=== PATIENT | male | born 1955 | race Caucasian/White ===

== ENCOUNTER → 2018-03-05 | Outpatient (CLI) | payer BC | LOC: M RAD 12:53 | DX: I12.9 Hypertensive chronic kidney disease with stage 1 through stage 4 chronic kidney disease, or unspecified chronic kidney disease (principal); N18.2 Chronic kidney disease, stage 2 (mild) | CPT/HCPCS: 76775 ==

== ENCOUNTER → 2019-03-18 | Outpatient (REF) | payer OTHER ==
[~2019-03-18] MED LIST: DOXA1TAB41 PO; LEVO100T5 PO; LISI10TA4 PO
[2019-03-18 14:00] LABS: BACTERIA, URINE AUTO NEGATIVE (NEGATIVE); RBC, URINE AUTO 0 /HPF (0-3); SQUAMOUS EPITHELIAL CELL UR AU 0 /HPF (0-6); WBC, URINE AUTO 0 /HPF (0-3)
== END ==
LOC: M LAB REF 12:54
PROVIDERS: ATTEND Internal Medicine Nephrology
DX: I10 Essential (primary) hypertension (principal); R31.21 Asymptomatic microscopic hematuria

== ENCOUNTER → 2020-11-12 | Outpatient (CLI) | payer MEDICARE ==
[~2020-11-12] MED LIST changes: +D31000TA2 PO; +DOXA1TAB67 PO; +FLAX1CAP5 PO; +LISI10TA22 PO; -LISI10TA4 PO; +NIAC500T29 PO; +SILD100T PO
--- NOTE | 2020-11-12 09:56 | REP ---
INDICATION: CLL. COMPARISON: Renal ultrasound 03/05/2018. TECHNIQUE: Real-time sonographic evaluation of ABDOMEN performed. FINDINGS: The patient has had a prior cholecystectomy.. There is no intrahepatic or extrahepatic biliary dilatation, common bile duct measures 4 mm in maximum diameter. The liver demonstrates homogeneous echotexture with no gross mass. Two calcified granulomas are seen in the right lobe. Pancreas is not seen due to overlying bowel gas. Spleen is enlarged measuring 16.7 x 7.4 x 13.4 cm. There are calcified granulomas in the spleen. Probable accessory splenic tissue is seen between the spleen and left kidney 1.8 x 1.2 x 1.7 cm. A There is no evidence of hydronephrosis, cyst, mass, or calculus in either kidney. The right kidney measures 10.7 x 4.5 x 5.3 cm. Left renal dimensions are 10.1 x 4.2 x 5.1 cm. The abdominal aorta is normal in caliber with no aneurysm. Maximum AP diameter 1.7 cm. The very proximal abdominal aorta is not seen due to overlying bowel gas. No free fluid is seen. IMPRESSION: Splenomegaly. <Electronically signed by Twin Booth > 11/12/20 [id number]
== END ==
LOC: M RAD 08:35
PROVIDERS: ATTEND Internal Medicine Hematology & Oncology
DX: C91.10 Chronic lymphocytic leukemia of B-cell type not having achieved remission (principal)

== ENCOUNTER → 2020-11-23 | Outpatient (CLI) | payer MEDICARE ==
--- NOTE | 2020-11-23 16:15 | RADONC.CN ---
Radiation Oncology Hx/Consult Radiation Oncology Consult Date of Service: Nov 23, 2020 Pt Identifier Jose Ramon Dove is a 65 year old male with a strong family history of prostate cancer and newly diagnosed low risk prostate cancer cT1c Melanie 3+3=6 (3/12 cores+) PSA 5.4, PSADT 12 month. He is seen today for consideration of RT. Diagnosis/Treatment History Oncologic History Also history of CLL not on active treatment Followed by Dr. Edwards for rising PSA PSA history: 02/14/16 0.97 05/26/19 2.9 02/03/20 3.2 08/08/20 4.4 11/13/20 5.54 09/21/20 TRUS biopsy Melanie 3+3=6 in 3/12 cores Gland 27 cc ALMA 2+ IPSS 8 LIMA 3 MRI Prostate 11/23/20 pending Interval History Feels well. Has some ED underlying, not a priority for him, has tried viagra in the past. Minimal LUTs, mostly longstanding nocturia, takes doxazosin. Normal BMs daily. Appetite good weight stable. Lives in [place]. States he favors treatment, contemplating RT versus RP. Past Medical History: Hypothyroid HTN Past Surgical History: Colon resection d/t bowel perforation during colonoscopy Cholecystectomy Family History: Father 83 prostate cancer Paternal uncle alive prostate cancer Paternal uncle (2) alive prostate cancer Social History: <10 pack year former smoker quit in his 20s Drinks 2 beers daily Allergies / Meds Allergies: Coded Allergies: No Known Allergies (Verified Allergy, Unknown, 08/17/20) Home Meds Reported Medications Sildenafil Citrate (Sildenafil Citrate) 100 Mg Tablet, 1 TAB PO PRN for 30 Days, #6 TAB 08/17/20 Niacinamide (Niacinamide) 500 Mg Tablet, 1 TAB PO BID for 30 Days, #60 TAB 08/17/20 Cholecalciferol (Vitamin D3) (Vitamin D3) 1,000 Unit Tablet, 1000 UNITS PO DAILY, TAB 08/17/20 Flaxseed Oil (Flaxseed Oil) 1,000 Mg Capsule, 1 CAP PO DAILY for 30 Days, #30 CAP 08/17/20 Doxazosin Mesylate (Doxazosin) 4 Mg Tablet, 1 TAB PO DAILY for 30 Days, #30 TAB 08/17/20 Levothyroxine Sodium (LEVOTHYROXINE SODIUM) 100 Mcg Tab, 100 MCG PO DAILY for 30 Days, #30 TAB 07/01/18 Lisinopril (Lisinopril) 10 Mg Tab, 10 MG PO DAILY for 30 Days, #30 TAB 07/01/18 Review of Systems Constitutional: Denies: Chills, Fever, Night Sweats Eyes: Denies: Pain, Vision change Skin: Denies: Rash, Lesions, Bruising Pulmonary: Denies: Dyspnea, Cough Cardiovascular: Denies: Chest Pain, Palpitations, Edema Gastrointestinal: Denies: Nausea, Vomiting, Abdominal Pain, Diarrhea Genitourinary: Denies: Dysuria, Frequency, Incontinence Hematologic: Denies: Bruising, Petecchia, Enlarged Lymph Nodes Endocrine: Denies: Cold Intolerance Musculoskeletal: Denies: Neck pain, Back pain Neurological: Denies: Weakness, Numbness, Incoordination Psych: Reports: Mood Normal; Denies: Memory Issues, Thoughts of Self Harm Vital Signs Ht 66" Wt 200 lbs BMI 32 T 97.9 P 77 RR 18 BP 121/75 O2 97% Pain 0 Fatigue 0 General Exam: Positive: Alert, Cooperative, No Acute Distress Eye Exam: Positive: PERRLA, EOMI ENT EXAM: Positive: Mucous membr. moist/pink, Pharynx Normal Neck Exam: Negative: Thyromegaly, Lymphadenopathy Chest Exam: Positive: Normal air movement; Negative: Rales, Rhonchi, Wheezing Heart Exam: Positive: Rate Normal, Regular Rhythm Abdomen Exam: Positive: Soft; Negative: Tenderness, Mass Male Exam: Positive: Normal Genital Exam, Normal Prostate (2+); Negative: Lesions Extremity Exam: Negative: Edema, Tenderness Skin Exam: Positive: Nl turgor and temperature; Negative: Rash Neuro Exam: Positive: Normal Gait, Normal Speech, Cranial Nerves 3-12 NL Psych Exam: Positive: Mental status NL, Mood NL, Memory Intact Diagnostic and Laboratory Diagnostic Review Radiologic images, relevant labs and pathology reports were personally reviewed and discussed with Mr. Dove. Assessment and Plan Impression Mr. Dove is a 65 year old male with a strong family history of prostate cancer and newly diagnosed low risk prostate cancer cT1c Hague 3+3=6 (3/12 cores+) PSA 5.4, PSADT 12 month. He is seen today for consideration of RT. Stage Stage I cT1c Hague 3+3=6 PSA 5.54 low risk prostate cancer Performance Status ECOG 0 Plan We had an extensive discussion with Mr. Dove regarding the diagnosis at hand and available therapeutic options. He is fit and relatively young with no significant comorbidities. His most serious health concern aside from the new diagnosis of prostate CA, was a bowel perforation during screening colonoscopy years ago. He has a strong family history of prostate cancer including his father. This has tipped him toward seeking treatment at this time. He has a bone scan and MRI prostate pending. He has experienced a relatively steady increase in his PSA with a DT of ~12 months. This renders his likelihood of needing treatment greater than most of the low risk population. He stated he is strongly against in principal anyway. With respect to radiation options he has a small gland and minimal LUTs and so would be an excellent candidate for SBRT with SpaceOAR. This regimen was discussed in detail with him, as were alternatives of moderate hypofractionation and brachytherapy. He was initially interested in LDR, but after hearing about the side effects (which with I-125 implants as are done in [place], tend to be of long duration). We also reviewed HDR and I offered referral to [place] for consideration of this, however he prefers treatment closer to home. He is moderately interested in SBRT versus surgery. He also requested referral for consideration of RP, which I think he would be a good candidate for, I am not sure how his history of bowel injury would affect his candidacy. I will facilitate referral to Dr. Quintero to discuss this. He asked about salvage options post RP and RT, and I explained that bra chytherapy or salvage RP (done in a tertiary center in experienced hands) can be effective post RT salvage options. If he had RP and failed then RT would be the salvage option of choice. I also explained that with treatment his chance of lifelong progression free survival is very high based on his current clinical information. We discussed the logistics of receiving radiation therapy in detail including the need for a 1-time planning session. We discussed the side effects of RT, irritative voiding symptoms and short term diarrhea, as well as late rectal bleeding which is mitigated in part with SpaceOAR placement. I defer to Dr. Quintero to discuss surgical side effects. After discussing the risks, benefits and alternatives to radiation therapy, Mr. Dove was amenable to pursuing radiotherapy. All questions were answered to the patient's satisfaction. We instructed the patient that if there were any questions,concerns or changes in clinical status in the interim to contact us. Recommendations Patient desires treatment: Consider SBRT with SpaceOAR versus RP Refer to Dr. Quintero for consideration of RP Will review MRI prostate personally and call patient with results Billing Statement Total time of [52] minutes was spent preparing for the visit [3], obtaining HPI [9], examining the patient [3], reviewing diagnostic tests [3], discussing management options [20], coordinating care [4], and writing this note [10]. FRANNIE DONALD MD Nov 23, 2020 16:15
== END ==
LOC: M ONCR 11:02
PROVIDERS: ATTEND General Practice
DX: C61 Malignant neoplasm of prostate (principal)

== ENCOUNTER → 2020-11-23 | Outpatient (CLI) | payer MEDICARE ==
--- NOTE | 2020-11-23 17:46 | REP ---
INDICATION: PROSTATE CA. COMPARISON: No comparison studies. TECHNIQUE: Axial, coronal and sagittal imaging planes are utilized for T1 and T2 weighted scans including spin echo, fast spin echo, inversion recovery sequences. Postcontrast imaging is performed. 18 mL of intravenous ProHance is administered. FINDINGS: Cortical and medullary bone signal intensity are normal in the bony pelvic ring, sacrum, and proximal femurs. Of the visualized lumbar spine signal intensity is normal. No MR evidence of skeletal metastatic disease is seen. Prostate is shows central gland nodular enlargement consistent with BPH. There are several scattered a inguinal lymph nodes bilaterally. The largest lymph node visible is in the left distal external iliac region adjacent to the distal external iliac vein. This measures 12 x 13 x 24 mm. No other enlarged lymph node is appreciated. No adenopathy is seen adjacent to the aortic bifurcation or in the upper pelvis. Seminal vesicles are normal and symmetric. Urinary bladder negron are smooth. IMPRESSION: There is 1 borderline sized left external iliac lymph node as above. Otherwise negative. BPH changes in the prostate. No evidence of skeletal metastatic disease. <Electronically signed by Felix Carrillo > 11/23/20 [id number]
--- NOTE | 2020-11-23 17:53 | REP ---
INDICATION: PROSTATE CA. COMPARISON: No comparison MRI study. There is a abdominal sonography from 12 November 2020.. TECHNIQUE: Axial and coronal imaging planes are utilized. T1 and T2 weighted sequences include spin echo, fast spin echo, diffusion, in and out of phase, and dynamically acquired sequential postcontrast images. The gadolinium enhancement dose is 18 mL of ProHance. FINDINGS: The spleen is mildly enlarged measuring 14.9 cm in greatest dimension. There is a 1.5 cm accessory splenule along the inferior margin of the spleen. There is a smaller 1.0 cm accessory splenule superior to the spleen. No focal hepatic lesion is seen. The liver is not enlarged. Normal adrenal glands are seen. No abnormality is noted in the pancreas. The kidneys are morphologically intact and enhance symmetrically there is mild signal dropout in the liver on out of phase imaging suggesting minimal diffuse fatty infiltration. There is a small subcentimeter low T1 low T2 signal intensity focus along the right posterior liver edge consistent with a granuloma. No abnormal contrast enhancement is seen within the liver or spleen.. There is no evidence of retroperitoneal or upper abdominal adenopathy. Cortical and medullary bone signal intensity are normal. IMPRESSION: No evidence of mass or adenopathy. Mild splenomegaly. <Electronically signed by Felix Carrillo > 11/23/20 [id number]
== END ==
LOC: M PLARAD 13:06
PROVIDERS: ATTEND Specialist
DX: C61 Malignant neoplasm of prostate (principal)
CPT/HCPCS: 72197; 74183; G0463

== ENCOUNTER → 2020-11-27 | Outpatient (CLI) | payer MEDICARE ==
--- NOTE | 2020-11-27 13:40 | REP ---
INDICATION: PROSTATE CA. COMPARISON: None. TECHNIQUE/RADIOTRACER AND DOSE: 22.0 mCi of Technetium-99m MDP was injected and standard whole-body bone scanning is acquired. FINDINGS: There is a normal distribution of skeletal tracer with uptake in bilateral kidneys and in the urinary bladder. There is no evidence to suggest skeletal metastatic disease. There is mild osteoarthritic uptake in the medial compartment of the left knee and in both acromioclavicular joints. IMPRESSION: Negative whole body radionuclide bone scan. <Electronically signed by Felix Carrillo > 11/27/20 [id number]
== END ==
LOC: M RAD 09:41
PROVIDERS: ATTEND Specialist
DX: C61 Malignant neoplasm of prostate (principal)
CPT/HCPCS: 78306; A9503

== ENCOUNTER → 2020-12-21 | Outpatient (CLI) | payer MEDICARE ==
[~2020-12-21] MED LIST changes: +MULT1TAB50 PO
== END ==
LOC: M LABSMTC 11:12
PROVIDERS: ATTEND Anesthesiology
DX: Z01.812 Encounter for preprocedural laboratory examination (principal); Z20.822 Contact with and (suspected) exposure to COVID-19

== ENCOUNTER 2020-12-26 11:37 | Inpatient (IN) | payer MEDICARE ==
[~2020-12-26] VITALS: Ht 167.6 cm; Wt 90.3 kg
[~2020-12-26 11:37] MED LIST changes: +ACETAMINOPHEN 1000MG 100ML IV BTL (OFIRMEV) (J0131 PER 10MG) As Ordered ONE; +HEPARIN SOD (PORCINE) 5000UNITS/ML 1ML VIAL/SYRINGE SQ ONE; +HYDROmorphone HCL 2 MG/ML 1ML VIAL (J1170) As Ordered ONE; +LIDOCAINE 1% MDV 20ML VIAL SQ PRN; +LIDOCAINE 2% 100MG/5ML SDV (FOR ANES.) As Ordered ONE; +LR 1,000 ML IV ONE; +MIDAZOLAM INJ 2MG/2ML VIAL (J2250 PER 1MG) As Ordered ONE; +ONDANSETRON 4MG/2ML VIAL As Ordered ONE; +ROCURONIUM BROMIDE 50 MG/5 ML VIAL As Ordered ONE; +SUGAMMADEX SODIUM 500 MG/5 ML VIAL (BRIDION) As Ordered ONE; +ceFAZolin SOD 2 GM in IV 1 EA IV ONE; +dexameTHASONE 4 MG/ML 1ML VIAL (J1100 PER 1MG) As Ordered ONE; +fentaNYL 100 MCG/2 ML INJECTION (J3010) As Ordered ONE; +propofoL 200 MG/20 ML VIAL As Ordered ONE
[2020-12-26] MEDS ORDERED: LIDOCAINE 1% SDV 30ML VIAL As Ordered ONE ×2 (12:28→15:22)
[2020-12-26] MEDS ORDERED: BUPIVACAINE HCL 0.25% 30ML VIAL As Ordered ONE (12:28)
[2020-12-26] MEDS ORDERED: GLYCOPYRROLATE INJ 0.2 MG/ML 2 ML VIAL As Ordered ONE (15:23)
[2020-12-26] MEDS ORDERED: MORPHINE 2 MG/ML 1ML VIAL (J2270) IV PRN (15:30)
[2020-12-26] MEDS ORDERED: ACETAMINOPHEN TAB 650MG DOSE (2X325MG) PO PRN (15:30)
[2020-12-26] MEDS ORDERED: PERCOCET 5MG/325MG TAB PO PRN ×2 (15:30→20:30)
[2020-12-26] MEDS ORDERED: ONDANSETRON 4MG/2ML VIAL IV PRN ×2 (15:30→20:30)
[2020-12-26] MEDS ORDERED: NS 1,000 ML IV SCH (15:30)
[2020-12-26] MEDS ORDERED: LABETALOL 100MG/20ML VIAL As Ordered ONE (16:01)
[2020-12-26] MEDS ORDERED: ROCURONIUM BROMIDE 50 MG/5 ML VIAL As Ordered ONE (16:38)
[2020-12-26] MEDS ORDERED: ceFAZolin 2 GM/D5W 50 ML IV BAG (J0690 PER 500MG) As Ordered ONE (18:32)
--- NOTE | 2020-12-26 19:39 | ROOPDOC ---
[facility] Report Of Operation Report of Operation DATE OF PROCEDURE: 12/26/20 PREPROCEDURE DIAGNOSIS: Prostate cancer. POSTPROCEDURE DIAGNOSIS: Prostate cancer. PROCEDURE: Robotic-assisted laparoscopic radical prostatectomy. SURGEON: Anthony Joya MD CARTON MAKING MACHINE OPERATOR: Arleth Glass NP ANESTHESIA: General. OPERATIVE INDICATIONS: This is a 65 year old male with clinical T1c Melanie 3+3 prostate cancer. After a discussion of the options for treatment, he elected to undergo the above procedure. DESCRIPTION OF PROCEDURE: The patient was brought to the operating room and general anesthesia was induced. Prophylactic antibiotics were infused. He was then placed in the dorsal lithotomy position and prepped and draped in the usual sterile fashion. At this point, a Mcgill catheter was inserted into the bladder and the balloon was filled with 10 mL of sterile water. We then made a midline incision just above the umbilicus for an 8 mm port. A Veress needle was utilized to achieve pneumoperitoneum. Next, an 8 mm port was inserted into the incision and subsequently a camera was inserted. There were no injuries from the Veress needle or initial trocar placement. At this point, we placed the remaining ports, including a 12 mm senior agricultural assistant port and then three robotic ports in the usual configuration. Once all the ports were placed, the robot was docked. We then performed lysis of adhesions between he sigmoid colon and the abdominal wall. The bladder was then released from the anterior abdominal wall using electrocautery. Once the bladder was dropped, the fat overlying the prostate was cleared using electrocautery. The superficial dorsal vein was controlled with electrocautery. The endopelvic fascia was opened on both sides and the dorsal venous complex was cleared. Next, a #0 Vicryl [id number] stitch was placed around the dorsal venous complex. Once that was done, the bladder was opened and dissected away from the prostate. The prostate was lifted up. The vasa deferentia were identified in the midline. They were then ligated and transected. The seminal vesicles were also dissected off bilaterally. The rectum was safely mobilized away from the prostate. Bilateral prostatic pedicles were taken using the Synchroseal. The pedicles were carried towards the apex. After taking care of the pedicles and mobilizing the rectum off the prostate below, the prostate was only connected by the urethra. At this point, the dorsal venous complex was transected with electrocautery. The urethra was then opened and the catheter was withdrawn and the posterior urethra was transected, thus freeing the prostate. At this point, we checked for hemostasis and it did appear very good. Once hemostasis was confirmed, I then moved on to perform the vesicourethral anastomosis. This was performed with a Quill stitch in a running fashion. Once this was done, the final #20-Kinyarwanda Mcgill catheter was placed. The balloon was filled with 15 mL of sterile water. Upon completion of the vesicourethral a nastomosis, it was tested by filling the bladder with sterile saline water. The anastomosis appeared to be watertight. At this point, the prostate and seminal vesicles were placed in an Endo Catch bag for future retrieval. The robot was then undocked. A Maria D fascial closure device was utilized to place a #0 Vicryl suture between the fascia of the 12 mm senior agricultural assistant port. At this point, a Dwain- Jackson drain was brought in through the left robotic port skin site and the drain was positioned anterior to the bladder. The drain was secured to the skin with #2-0 Ethilon suture. Next, all the remaining ports were removed and there did not appear to be any bleeding from any of the port sites. The prostate was then extracted from the camera port site after the skin was extended. The fascia in this incision was then closed with a running #0 Vicryl stitch. The previously placed #0 Vicryl free ties through the senior agricultural assistant port were then tied down and all incisions were irrigated. Last, all of the incisions were closed with running subcuticular #4-0 Monocryl sutures. Local anesthesia was applied. Dermabond was then applied to the incisions. This marked the conclusion of the procedure. The patient was then taken out of the dorsal lithotomy position, awakened from anesthesia and transported to the recovery room in stable condition. ESTIMATED BLOOD LOSS: 350 mL. COMPLICATIONS: None. SPECIMENS: Prostate. PLAN: The patient will be admitted to the hospital postoperatively, and he will likely be discharged home within the next 1-2 days. ANTHONY JOYA MD Dec 26, 2020 14:57
[2020-12-26 20:05] LABS: HEMATOCRIT 43.6 % (42.0-52.0); HEMOGLOBIN 14.3 g/dl (13.5-17.5); MEAN CORPUSCULAR HEMOGLOBIN 30.6 pg (27.0-33.0); MEAN CORPUSCULAR HGB CONC 32.8 g/dl (32.0-36.5); MEAN CORPUSCULAR VOLUME 93.4 fl (80.0-96.0); PLATELET COUNT, AUTOMATED 150 10^3/uL (150-450); RED BLOOD COUNT 4.67 10^6/uL (4.30-6.10); WHITE BLOOD COUNT 25.6 10^3/uL (4.0-10.0)
[2020-12-26 20:26] LABS: CALCIUM LEVEL 8.3 MG/DL (8.8-10.2); CREATININE FOR GFR 1.61 MG/DL (0.70-1.30); GLOMERULAR FILTRATION RATE 45.8 (>49); POTASSIUM SERUM 4.3 MEQ/L (3.5-5.1)
[2020-12-26] MEDS ORDERED: LR 1,000 ML IV SCH (20:30)
[2020-12-26] MEDS ORDERED: fentaNYL 100 MCG/2 ML INJECTION (J3010) IV PRN (20:30)
[2020-12-26] MEDS ORDERED: METOCLOPRAMIDE INJ 10MG/2ML VIAL (J2765 PER 1) IV PRN (20:30)
[2020-12-26 21:00] VITALS: BP 121/74
[2020-12-26 21:30] VITALS: BP 121/75
[2020-12-26] MEDS: ceFAZolin SOD 1 GM in D5W MINI-BAG PLUS 50 ML IV SCH (21:38)
[2020-12-26] MEDS: HEPARIN SOD (PORCINE) 5000UNITS/ML 1ML VIAL/SYRINGE SC SCH (21:38)
[2020-12-26] MEDS: PERCOCET 5MG/325MG TAB PO PRN (21:39)
[2020-12-26] MEDS: DOCUSATE SODIUM 100MG CAPSULE PO SCH (21:39)
[2020-12-26 22:00] VITALS: BP 120/73
[2020-12-26 23:00] VITALS: BP 121/73
[2020-12-27] VITALS: BP 120/72
[2020-12-27 06:00] VITALS: BP 120/70
[2020-12-27] MEDS ORDERED: LEVOTHYROXINE 100MCG TABLET (0.1MG) PO SCH (06:00)
[2020-12-27] MEDS: ceFAZolin SOD 1 GM in D5W MINI-BAG PLUS 50 ML IV SCH (06:32)
[2020-12-27] MEDS: PERCOCET 5MG/325MG TAB PO PRN ×2 (06:33→14:57)
[2020-12-27] MEDS: HEPARIN SOD (PORCINE) 5000UNITS/ML 1ML VIAL/SYRINGE SC SCH ×2 (06:33→14:57)
[2020-12-27 06:36] LABS: HEMATOCRIT 37.3 % (42.0-52.0); HEMOGLOBIN 12.4 g/dl (13.5-17.5); MEAN CORPUSCULAR HEMOGLOBIN 31.2 pg (27.0-33.0); MEAN CORPUSCULAR HGB CONC 33.2 g/dl (32.0-36.5); MEAN CORPUSCULAR VOLUME 93.7 fl (80.0-96.0); PLATELET COUNT, AUTOMATED 149 10^3/uL (150-450); RED BLOOD COUNT 3.98 10^6/uL (4.30-6.10); WHITE BLOOD COUNT 21.6 10^3/uL (4.0-10.0)
[2020-12-27 06:56] LABS: CALCIUM LEVEL 8.1 MG/DL (8.8-10.2); CREATININE FOR GFR 1.36 MG/DL (0.70-1.30); GLOMERULAR FILTRATION RATE 55.6 (>49); POTASSIUM SERUM 4.7 MEQ/L (3.5-5.1)
[2020-12-27 08:24] VITALS: BP 119/69
[2020-12-27] MEDS: DOCUSATE SODIUM 100MG CAPSULE PO SCH (08:24)
--- NOTE | 2020-12-27 09:37 | IPNPDOC ---
Subjective Review oF Systems Chief Complaint The patient is a 65-year-old male admitted with a reason for visit of Prostate Cancer. Events since Last Encounter No acute events o/n. Good pain control. Notes main discomfort is from the catheter. Has not ambulated yet. No n/v. No f/c/ns. Objective Physical Examination General Exam: Alert, Cooperative, No Acute Distress ABDOMEN EXAM: Soft, Tenderness (mild), Other (incisions clean/dry/intact; RACHEAL w/ serosanguinous output) Skin Exam: Nl turgor and temperature Neuro Exam: Normal Speech Psych Exam: Mental status NL, Mood NL Other physical findings catheter draining pink urine Vital Signs/I&O Vital Signs Date Time Temp Pulse Resp B/P (MAP) Pulse Ox O2 Delivery O2 Flow Rate FiO2 12/27/20 08:24 119/69 12/27/20 07:20 18 12/27/20 06:00 99.5 68 97 Nasal Cannula 2.0 I&O- Last 24 Hours up to 6 AM 12/27/20 06:00 Intake Total 2450 ml Output Total 875 ml Balance 1575 ml Laboratory Data Labs 24H Laboratory Tests 2 12/26/20 19:51: Nucleated Red Blood Cells % (auto) 0.0, Anion Gap 5L, Glomerular Filtration Rate 45.8L, Calcium Level 8.3L 12/27/20 05:56: Nucleated Red Blood Cells % (auto) 0.0, Anion Gap 5L, Glomerular Filtration Rate 55.6, Calcium Level 8.1L CBC/BMP Laboratory Tests 12/26/20 19:51 12/27/20 05:56 Assessment/Plan Date Seen The patient was seen on 12/27/20. Patient Summary This is a 65 y/o M POD1 s/p RALP. Doing well. Good UOP. RACHEAL w/ normal output. Plan/VTE VTE Prophylaxis Ordered?: Yes VTE Exclusion Mechanical Proph: N/A:VTE Prophy Ordered VTE Exclusion Pharmacological: N/A:VTE Prophy Ordered Plan/Urinary Catheter Urinary Catheter: Other Catheter: (catheter will need to stay in for 7 days) Plan - percocet prn pain - d/c IVF - strict I/Os - continue home meds - ambulate - SCDs when in bed - SQH - incentive spirometry - advance diet as tolerated - possible discharge home later today w/ catheter ANTHONY JOYA MD Dec 27, 2020 09:37
[2020-12-27 10:00] VITALS: BP 119/69
[2020-12-27 14:00] VITALS: BP 92/54
[2020-12-27] MEDS ORDERED: DOK1CAP7 PO (16:43)
[2020-12-27] MEDS ORDERED: CIPR-249 PO (16:43)
[2020-12-27] MEDS ORDERED: PERCOCET PO (16:43)
--- NOTE | 2020-12-28 09:02 | DSES ---
DISCHARGE SUMMARY DATE OF ADMISSION: 12/26/2020 DATE OF DISCHARGE: 12/27/2020 ADMISSION DIAGNOSIS: Prostate cancer. DISCHARGE DIAGNOSIS: Prostate cancer. ADMITTING PHYSICIAN: Dr. Juan Quintero DISCHARGE PHYSICIAN: Dr. Juna Quintero PROCEDURES PERFORMED: Robotic-assisted laparoscopic radical prostatectomy on 12/26/2020. HISTORY OF PRESENT ILLNESS: This is a 65-year-old male with organ-confined prostate cancer, electing to undergo a robotic radical prostatectomy for treatment. He was admitted to the hospital postoperatively. HOSPITALIZATION COURSE: The patient was admitted to the hospital after undergoing the above-listed procedure. His postoperative course was unremarkable. On postoperative day #1, his labs were notable for hemoglobin stable at 12.4 and serum creatinine which was 1.36. He had excellent urine output throughout postoperative day #1 and normal amounts of output from his Dwain-Jackson drain. We got him ambulating on postoperative day #1, and he did so without any difficulty. His pain was controlled with oral pain medications. His diet was advanced, and he tolerated a regular diet. By the end of postoperative day #1, he was doing well and was deemed ready for discharge home. He was discharged home after his Dwain-Jackson drain was removed. He was sent home with his catheter in place and with the plan for him to followup in urology clinic in approximately 1 week for catheter removal and to discuss his pathology results.
== END 2020-12-27 18:25 | disposition home or self-care (01) | DRG 707 ==
LOC: M OR 11:37 → M MS5PR 21:05
PROVIDERS: ADMIT Urology; ATTEND Urology
PROC: 0VT04ZZ Resection of Prostate, Percutaneous Endoscopic Approach (ICD-10-PCS; principal; 2020-12-26 13:15)
DX: C61 Malignant neoplasm of prostate (principal); C91.10 Chronic lymphocytic leukemia of B-cell type not having achieved remission; I10 Essential (primary) hypertension; E78.5 Hyperlipidemia, unspecified; E03.9 Hypothyroidism, unspecified; K57.30 Diverticulosis of large intestine without perforation or abscess without bleeding; G25.81 Restless legs syndrome; D69.6 Thrombocytopenia, unspecified; E55.9 Vitamin D deficiency, unspecified; R73.01 Impaired fasting glucose

== ENCOUNTER → 2025-09-05 | Outpatient (CLI) | payer MEDICARE ==
[~2025-09-05] MED LIST changes: -ACETAMINOPHEN 1000MG 100ML IV BTL (OFIRMEV) (J0131 PER 10MG) As Ordered ONE; +CIPR-249 PO; -D31000TA2 PO; +DOK1CAP4 PO; +DOXY-441 PO; -HEPARIN SOD (PORCINE) 5000UNITS/ML 1ML VIAL/SYRINGE SQ ONE; -HYDROmorphone HCL 2 MG/ML 1ML VIAL (J1170) As Ordered ONE; -LIDOCAINE 1% MDV 20ML VIAL SQ PRN; -LIDOCAINE 2% 100MG/5ML SDV (FOR ANES.) As Ordered ONE; -LR 1,000 ML IV ONE; -MIDAZOLAM INJ 2MG/2ML VIAL (J2250 PER 1MG) As Ordered ONE; -ONDANSETRON 4MG/2ML VIAL As Ordered ONE; +PERCOCET PO; +PROBCAP14 PO; -ROCURONIUM BROMIDE 50 MG/5 ML VIAL As Ordered ONE; -SUGAMMADEX SODIUM 500 MG/5 ML VIAL (BRIDION) As Ordered ONE; +VITA100093 PO; -ceFAZolin SOD 2 GM in IV 1 EA IV ONE; -dexameTHASONE 4 MG/ML 1ML VIAL (J1100 PER 1MG) As Ordered ONE; -fentaNYL 100 MCG/2 ML INJECTION (J3010) As Ordered ONE; -propofoL 200 MG/20 ML VIAL As Ordered ONE
[2025-09-05 15:28] LABS: PLATELET COUNT, AUTOMATED 157 10^3/uL (150-450)
[2025-09-05 15:37] LABS: ALT/SGPT 32 U/L (7.0-40); AST/SGOT 27 U/L (<34); C REACTIVE PROTEIN QUANTITATIV < 0.50 MG/DL (<1.0); CALCIUM LEVEL 9.5 MG/DL (8.3-10.6); CARBON DIOXIDE LEVEL 30 MMOL/L (20-31); CHLORIDE LEVEL 101 MMOL/L (98-107); CREATININE FOR GFR 1.12 MG/DL (0.70-1.30); GLOMERULAR FILTRATION RATE 69.8 (>42); POTASSIUM SERUM 4.4 MMOL/L (3.5-5.1); SODIUM LEVEL 139 MMOL/L (136-145)
[2025-09-05 16:05] LABS: ATYPICAL LYMPH 15 % (0-5); EOSINOPHILS 1 % (0-3); LYMPHOCYTES 30 % (16-44); MONOCYTES 4 % (0-5); NEUTROPHILS 50 % (28-66); PLATELET ESTIMATE NORMAL (NORMAL)
== END ==
LOC: M RAD 14:12
PROVIDERS: ATTEND Internal Medicine Rheumatology
DX: Z15.89 Genetic susceptibility to other disease (principal); M19.041 Primary osteoarthritis, right hand; M19.042 Primary osteoarthritis, left hand

== ENCOUNTER → 2025-09-05 | Outpatient (CLI) | payer MEDICARE | LOC: M RAD 14:09 | PROVIDERS: ATTEND Physician Assistant | DX: M46.1 Sacroiliitis, not elsewhere classified (principal); M54.50 Low back pain, unspecified; Z15.89 Genetic susceptibility to other disease; M19.041 Primary osteoarthritis, right hand; M19.042 Primary osteoarthritis, left hand; M48.062 Spinal stenosis, lumbar region with neurogenic claudication; M47.816 Spondylosis without myelopathy or radiculopathy, lumbar region; N43.3 Hydrocele, unspecified ==